=== PATIENT | male | born 1980 ===

== ENCOUNTER 2025-03-20 13:27 | Emergency (ER) | payer MEDICAID ==
[~2025-03-20] VITALS: Ht 198.1 cm; Wt 98.4 kg
[2025-03-20 13:29] VITALS: TEMP 97.4
--- NOTE | 2025-03-20 14:43 | Physician Documentation ---
History of Present Illness ~ Chief Complaint: Medical Clearance Stated Complaint: MED CLEARANCE FOR DETOX Time Seen by MD: 13:54 HPI This 44-year-old male with history of EtOH abuse presents requesting medical clearance to enter a rehab program for ETOH abuse, patient reports he drinks approximately 1/5 of 100+ proof alcohol a day. Patient reports history of severe withdrawal symptoms in the past including a possible seizure, patient reports no history of hallucinations with alcohol withdrawal. Patient reports last drink approximately 12 hours ago and reports a feeling of being shaky. Patient is starting rehab program immediately after medical clearance today. Patient reports no other acute symptoms or concerns. Tetanus within 5 years?: No Medication Reconciliation Allergies: Coded Allergies: No Known Allergies (Unverified , 03/20/25) Scheduled PRN Chlordiazepoxide Hcl (Librium), 25 MG PO BID PRN for for anxiety/agitation Past Medical History Past Medical History: No Pertinent History Alcohol Use: Abuse Review of Systems ROS As stated above in the HPI, otherwise all systems are reviewed and negative. Physical Exam Vital Signs: Temperature: 97.4, Source: Temporal, Heart Rate: 89, Respiratory Rate: 18, BP: 145/90, Pulse Oximetry: 97, Weight: 98.400 Physical Exam VITALS: Reviewed and as above. GENERAL: Alert, nontoxic appearing, no apparent distress. HEENT: Atraumatic, normocephalic, PERRLA, EOMI without nystagmus, RESPIRATORY: No increased work of breathing, no respiratory distress, speaking in full clear sentences CV: Regular rate and rhythm no murmur BACK: No CVA tenderness GI: Soft, nondistended, no rebound, no guarding, bowel sounds present MUSCULOSKELETAL: SKIN: Warm and dry NEURO: Upper extremity hand tremor, tongue tremor PSYCH: Normal mood and affect mildly anxious appearing Progress Results/Orders Results/Orders Vital Signs 03/20/25 03/20/25 03/20/25 13:29 14:55 14:56 Temp 97.4 Pulse 89 89 89 Resp 18 17 17 B/P (MAP) 145/90 145/90 (108) 145/90 Pulse Ox 97 97 97 Medical Decision Making Findings This 44-year-old male with history of alcohol abuse presented requesting medical clearance to enter a rehab program for alcohol abuse, patient reported feeling otherwise well and physical exam was benign with the exception of tremor noted on exam. As patient has history of heavy drinking and has had possible seizure during alcohol withdrawal in the past patient will require medication assistance with detox, though is appropriate for outpatient follow up. It is reassuring patient is going to rehab program directly from the emergency department after medical clearance and patient will be discharged with a prescription for a Librium taper to assist with alcohol withdrawal and prophylaxis against seizure associated with alcohol withdrawal. Differential Dx:Considerations: Include: Intoxication-Alcohol, Intoxication- Other drug, Personality disorder, Substance abuse disorder, Encephalopathy Departure Time of Disposition: 14:49 Disposition: HOME / SELF CARE / HOMELESS Impression: Primary Impression: General medical exam Additional Impression: Alcohol withdrawal Qualified Codes: F10.939 - Alcohol use, unspecified with withdrawal, unspecified Condition: Improved Discharge Instructions: Alcohol Withdrawal Syndrome, [id number] Additional Instructions: Please use the prescribed medication to assist with your withdrawal from alcohol and to decrease the chance of developing seizures from alcohol withdrawal. Do not drink while using this medication. Please follow up with your primary care provider in the next few days. Please return to the emergency department for any new or worsening concerning symptoms. At this time there appears to be no medical emergency and you are medically cleared to enter your rehabilitation program. Referrals: NO PRIMARY CARE PROVIDER (PCP) Prescriptions Chlordiazepoxide Hcl (Librium) 25 Mg Capsule 25 MG PO BID PRN for for anxiety/agitation MDD 150 mg for 14 Days, #32 CAP Use two tablets by mouth 3 times a day for two days, then two tablets twice a day for two days, then one tablet 3 times a day for two days, then one tablet twice a day for two days, then one tablet a day for two days Prov: ALAYNA LÓPEZ 03/20/25 Education Educated: Patient Educated regarding: diagnosis, treatment, prognosis, need for follow up Signature Scribe Signature: No scribe Attestation: The note accurately reflects work and decisions made by me.MARIELY Thayer 03/21/25 01:27 ALAYNA LÓPEZ March 20, 2025 14:43
[2025-03-20] MEDS ORDERED: CHLO25CA10 PO (14:46)
[2025-03-20 14:56] VITALS: BP 145/90; PULSE 89; RESP 17; O2SAT 97
== END 2025-03-20 14:59 | disposition home or self-care (01) ==
LOC: ER 13:28
DX: F10.139 Alcohol abuse with withdrawal, unspecified (principal); Y90.9 Presence of alcohol in blood, level not specified
CPT/HCPCS: 99283